=== PATIENT | female | born 2000 | race Caucasian/White ===

== ENCOUNTER 2019-12-11 13:25 | Emergency (ER) | payer BC ==
--- NOTE | 2019-12-11 13:55 | EDM.PDOC ---
ED HPI GENERAL MEDICAL PROBLEM - General Chief Complaint: Lower Extremity Injury/Pain Stated Complaint: LEFT KNEE INJURY Time Seen by Provider: 12/11/19 13:44 Source of Information: Reports: Patient History Limitations: Reports: No Limitations - History of Present Illness INITIAL COMMENTS - FREE TEXT/NARRATIVE: The patient presents with left knee pain. She was dancing last night and twisted her left knee. She can walk on it but it does hurt and if feels unstable. Onset: Sudden Duration: Hour(s): (Last night) Location: Reports: Lower Extremity, Left (Knee) Quality: Reports: Sharp Severity: Moderate Improves with: Reports: Immobilization Worsens with: Reports: Movement Context: Denies: Trauma Associated Symptoms: Reports: No Other Symptoms Left Knee Pain Score (Numeric/FACES): 7 - Related Data Allergies Allergy/AdvReac Type Severity Reaction Status Date / Time No Known Allergies Allergy Verified 12/11/19 13:37 Home Meds: Home Meds Metoprolol Succinate 1 tab PO ACBREAKFAST PRN 12/11/19 [History] Past Medical History Cardiovascular History: Reports: Other (See Below) Other Cardiovascular History: supraventricular tachycardia, premature atrial contractions - Past Surgical History Female Surgical History: Reports: Breast Reduction Social & Family History - Tobacco Use Smoking Status *Q: Never Smoker Second Hand Smoke Exposure: No - Caffeine Use Caffeine Use: Reports: None - Recreational Drug Use Recreational Drug Use: No Review of Systems - Review of Systems Review Of Systems: See Below Constitutional: Reports: No Symptoms Eyes: Reports: No Symptoms Ears: Reports: No Symptoms Nose: Reports: No Symptoms Mouth/Throat: Reports: No Symptoms Respiratory: Reports: No Symptoms Cardiovascular: Reports: No Symptoms GI/Abdominal: Reports: No Symptoms Musculoskeletal: Reports: Other (Left knee pain) ED EXAM, GENERAL - Physical Exam Exam: See Below Exam Limited By: No Limitations General Appearance: Alert, No Apparent Distress Ears: Normal External Exam Nose: Normal Inspection Head: Atraumatic, Normocephalic Neck: Normal Inspection Respiratory/Chest: No Respiratory Distress Extremities: Other (Mild edema to the left knee with pain upon palpation to the left patella and posterior knee. ligaments did apper stable but she did have some splinting. Good sensation and pulses distally.) Course - Vital Signs Last Recorded V/S: Last Vital Signs Temp 97.5 F 12/11/19 13:35 Pulse 89 12/11/19 13:35 Resp 16 12/11/19 13:35 BP 125/79 12/11/19 13:35 Pulse Ox 97 12/11/19 13:35 - Orders/Labs/Meds Orders: Active Orders 24 hr Category Date Time Status Knee Min 4V Lt [CR] Stat Exams 12/11/19 13:51 Ordered - Re-Assessments/Exams Free Text/Narrative Re-Assessment/Exam: 12/11/19 13:55 I ordered an x-ray of her knee. 12/11/19 14:19 Her x-ray looks good. I will get her a knee immobilizer and have her ice her kn ee and take motrin or aleve. I will have her follow up with Dr Spring as needed. Departure - Departure Time of Disposition: 14:20 Disposition: Home, Self-Care 01 Condition: Good Clinical Impression: Left knee sprain Qualifiers: Encounter type: initial encounter Involved ligament of knee: unspecified ligament Qualified Code(s): S83.92XA - Sprain of unspecified site of left knee, initial encounter - Discharge Information *PRESCRIPTION DRUG MONITORING PROGRAM REVIEWED*: Not Applicable *COPY OF PRESCRIPTION DRUG MONITORING REPORT IN PATIENT RAKEL: Not Applicable Referrals: PCP,None [Primary Care Provider] - Joseph Spring MD [Physician] - 1 Week Forms: ED Department Discharge Additional Instructions: Ice your knee for 15 minutes 3 times per day for 2 days. Take motrin or aleve for the pain. Wear the knee immobilizer for pain. Follow up with Dr Spring within a week or two. Please return if you are worse. Sepsis Event Note (ED) - Evaluation Sepsis Screening Result: No Definite Risk - Focused Exam Vital Signs: Vital Signs Temp Pulse Resp BP Pulse Ox 12/11/19 13:35 97.5 F 89 16 125/79 97 - My Orders Last 24 Hours: My Active Orders 12/11/19 13:51 Knee Min 4V Lt [CR] Stat - Assessment/Plan Last 24 Hours: My Active Orders 12/11/19 13:51 Knee Min 4V Lt [CR] Stat
--- NOTE | 2019-12-12 12:03 | CR ---
Left knee: 4 views of the left knee were obtained. Comparison: No prior knee study. Medial and lateral joint compartments are maintained in height. No joint effusion is seen. No acute fracture or other bony abnormality is appreciated. Impression: 1. No abnormality is identified a 4 view left knee exam. Diagnostic code #1 This report was dictated in MDT
== END 2019-12-11 14:30 | disposition home or self-care (01) ==
LOC: JD.ED 13:25
DX: S83.92XA Sprain of unspecified site of left knee, initial encounter (principal); X50.1XXA Overexertion from prolonged static or awkward postures, initial encounter
CPT/HCPCS: 73564-26-LT; 73564-LT; 99282; 99283